=== PATIENT | female | born 1955 | race Caucasian/White ===

== ENCOUNTER 2016-05-30 11:40 | Observation (INO) | payer SELFPAY ==
--- NOTE | 2016-05-30 12:15 | ER Document Report ---
ED Medical Screen (RME) - General Chief Complaint: Chest Pain Stated Complaint: CHEST PAIN Notes: Patients primary language is guamanian and her cover sheet states she is complaining of a headache, chest pain, right shoulder pain, diarrhea. This symptoms all started yesterday morning TRAVEL OUTSIDE OF THE [place] IN LAST 30 DAYS: No - Related Data Allergies/Adverse Reactions: No Known Allergies Allergy (Verified 05/30/16 12:10) Past Medical History - Social History Chew tobacco use (# tins/day): No Frequency of alcohol use: None Drug Abuse: None Renal/ Medical History: Denies: Hx Peritoneal Dialysis Physical Exam - Vital signs Vitals: Temp Pulse Resp BP Pulse Ox 98.1 F 67 20 126/84 H 96 05/30/16 12:01 05/30/16 12:01 05/30/16 12:05/30/16 12:01 05/30/16 12:01 Course - Vital Signs Vital signs: Temp Pulse Resp BP Pulse Ox 98.1 F 67 20 126/84 H 96 05/30/16 12:01 05/30/16 12:01 05/30/16 12:01 05/30/16 12:01 05/30/16 12:01
[2016-05-30] MEDS ORDERED: ASPIRIN 81 MG TABLET, CHEWABLE PO ONE (12:42)
[2016-05-30] MEDS ORDERED: NORMAL SALINE 1000 ML 1,000 ML IV PRN (12:43)
[2016-05-30 13:25] LABS: ABSOLUTE MONOCYTES (AUTO) 0.5 10^3/uL (0.1-1.4); ABSOLUTE NEUT (AUTO) 3.4 10^3/uL (1.7-8.2); BASOPHILS % (AUTO) 0.1 % (0-2); HEMATOCRIT 41.3 % (36.0-47.0); HEMOGLOBIN 13.6 g/dL (12.0-15.5); HGB HCT DIFFERENCE -0.5; LYMPHOCYTES % (AUTO) 34.1 % (13-45); MEAN CORPUSCULAR HEMOGLOBIN 31.3 pg (27.0-33.4); MEAN CORPUSCULAR VOLUME 95 fl (80-97); RED BLOOD COUNT 4.35 10^6/uL (3.72-5.28); RED CELL DISTRIBUTION WIDTH 12.3 % (11.5-14.0); SEGMENTED NEUTROPHILS % (AUTO) 57.8 % (42-78); WHITE BLOOD COUNT 5.8 10^3/uL (4.0-10.5)
[2016-05-30 13:56] LABS: ALANINE AMINOTRANSFERASE 29 U/L (9-52); ALBUMIN 4.2 g/dL (3.5-5.0); ALKALINE PHOSPHATASE 100 U/L (38-126); ANION GAP 13 (5-19); ASPARTATE AMINO TRANSFERASE 28 U/L (14-36); BILIRUBIN,TOTAL 0.5 mg/dL (0.2-1.3); BLOOD UREA NITROGEN 18 mg/dL (7-20); CALCIUM 9.3 mg/dL (8.4-10.2); CARBON DIOXIDE 27 mmol/L (22-30); CHLORIDE 105 mmol/L (98-107); CREATINE KINASE 60 U/L (30-135); CREATININE RESULT 0.59 mg/dL (0.52-1.25); GLUCOSE 96 mg/dL (75-110); POTASSIUM 3.6 mmol/L (3.6-5.0); SODIUM 145.3 mmol/L (137-145); TOTAL PROTEIN 6.9 g/dL (6.3-8.2)
[2016-05-30 14:09] LABS: CREATINE KINASE MB < 0.22 ng/mL (<4.55); TROPONIN I < 0.012 ng/mL
[2016-05-30] MEDS ORDERED: INSULIN LISPRO 100 UNIT/ML 3 ML VIAL SUBCUT PRN (15:00)
[2016-05-30] MEDS ORDERED: DEXTROSE 40% GEL 15 GM TUBE PO PRN ×2 (15:00)
[2016-05-30] MEDS ORDERED: GLUCAGON,HUMAN RECOMB 1 MG INJ IM PRN (15:00)
[2016-05-30] MEDS ORDERED: DEXTROSE 50%-WATER 25 GM/50 ML DISP.SYRIN IV PRN ×2 (15:00)
--- NOTE | 2016-05-30 15:05 | ER Document Report ---
ED Cardiac - General Chief Complaint: Chest Pain Stated Complaint: CHEST PAIN Time seen by provider: 15:03 Mode of Arrival: Ambulatory Information source: Patient Notes: History is obtained via Vianca translation ([phone]) This is a 61-year-old Greek-speaking female with a history of hypertension and diabetes who presents to the emergency room with intermittent left sided chest pain radiating to the left arm and the left neck. Patient denies any exacerbating factors states it's better with aspirin. TRAVEL OUTSIDE OF THE [place] IN LAST 30 DAYS: No - HPI Patient complains to provider of: Chest pain, Chest tightness Use of: denies: Alcohol, Amphetamines, Bath salts, Caffeine, Cocaine, Decongestants, Other Was the onset of pain: Gradual Is the pain a: New problem Chest pain location: Substernal Quality of pain: Heaviness Chest pain radiation location: Left shoulder Severity now: None Severity at worst: Mild Pain level currently: 0 Cardiac risk factors: Diabetes, Hypertension Positive cardiac history: No Associated symptoms: denies: Abdominal pain, Jaw pain, Palpitations, Shortness of breath Exacerbated by: Denies Relieved by: Nothing Similar symptoms previously: No Recently seen / treated by doctor: No - Related Data Allergies/Adverse Reactions: No Known Allergies Allergy (Verified 05/30/16 12:10) Home Medications: Current Home Medications Amlodipine Besylate 10 mg PO DAILY 05/30/16 [History] Metformin HCl 500 mg PO BID 05/30/16 [History] Past Medical History - General Information source: Patient - Social History Smoking Status: Never Smoker Cigarette use (# per day): No Chew tobacco use (# tins/day): No Frequency of alcohol use: None Drug Abuse: None Lives with: Family Family History: Reviewed & Not Pertinent Patient has suicidal ideation: No Patient has homicidal ideation: No - Past Medical History Cardiac Medical History: Reports: Hx Hypertension Pulmonary Medical History: Reports: None EENT Medical History: Reports: None Neurological Medical History: Reports: None Endocrine Medical History: Reports: Hx Diabetes Mellitus Type 2 Renal/ Medical History: Denies: Hx Peritoneal Dialysis Malignancy Medical History: Reports: None GI Medical History: Reports: None Musculoskeltal Medical History: Reports None Skin Medical History: Reports None Psychiatric Medical History: Reports: None Traumatic Medical History: Reports: None Infectious Medical History: Reports: None Past Surgical History: Reports: Hx Hysterectomy, Hx Orthopedic Surgery - Immunizations Hx Diphtheria, Pertussis, Tetanus Vaccination: No Review of Systems - Review of Systems Constitutional: denies: Chills, Fever EENT: No symptoms reported Cardiovascular: See HPI Respiratory: No symptoms reported Gastrointestinal: No symptoms reported Genitourinary: No symptoms reported Female Genitourinary: No symptoms reported Musculoskeletal: No symptoms reported Skin: No symptoms reported Hematologic/Lymphatic: No symptoms reported Neurological/Psychological: No symptoms reported Physical Exam - Vital signs Vitals: Temp Pulse Resp BP Pulse Ox 98.1 F 67 20 126/84 H 96 05/30/16 12:01 05/30/16 12:01 05/30/16 12:01 05/30/16 12:01 05/30/16 12:01 Notes: Physical exam: GENERAL: 61-year-old female, alert and oriented 3, no acute distress. HEAD: Atraumatic, normocephalic. EYES: Pupils equal round and reactive to light, extraocular movements intact, sclera anicteric, conjunctiva are normal. ENT: oropharynx clear without exudates. Moist mucous membranes. NECK: Normal range of motion, supple without lymphadenopathy or JVD. LUNGS: Breath sounds clear to auscultation bilaterally and equal. No wheezes rales or rhonchi. HEART: Regular rate and rhythm without murmurs, rubs or gallops. ABDOMEN: Soft, nontender, normoactive bowel sounds. No guarding, no rebound. No masses appreciated. EXTREMITIES: Normal range of motion, no pitting or edema. No clubbing or cyanosis. NEUROLOGICAL: Cranial nerves II through XII grossly intact. Normal speech, moving all extremities. PSYCH: Normal mood, normal affect. SKIN: Warm, Dry, normal turgor, no rashes or lesions noted. Course - Vital Signs Vital signs: Temp Pulse Resp BP Pulse Ox 98.1 F 67 19 111/82 97 05/30/16 12:01 05/30/16 12:01 05/30/16 17:03 05/30/16 17:03 05/30/16 17:03 - Laboratory Result Diagrams: 05/30/16 13:20 05/30/16 13:20 Laboratory results interpreted by me: 05/30/16 13:20 Sodium 145.3 H - Diagnostic Test Radiology reviewed: Image reviewed, Reports reviewed - Chest x-ray is clear - EKG Interpretation by Me Rate: Normal Rhythm: NSR - EKG shows normal sinus rhythm with nonspecific T changes (no old EKG to compare). Discharge - Discharge Clinical Impression: chest pain Condition: Stable Disposition: ADMITTED OBSERVATION Admitting Provider: Hospitalist - Dr. Martinez on/[facility] Admitted: Telemetry
--- NOTE | 2016-05-30 15:55 | PDOC H&P ---
History of Present Illness Admission Date/PCP: 05/30/16 14:47 In [facility] Patient complains of: Chest pain History of Present Illness: CORNELIA AGEE is a 61-year-old Azeri-speaking female with a history of hypertension and diabetes who presents to the emergency room with intermittent left sided chest pain radiating to the left arm and the left neck. Patient denies any exacerbating factors states it's better with aspirin. The patient's examination and history were obtained using Gerhard translation. The patient denies any known history of coronary artery disease or previous myocardial infarction. However the patient stated that she saw a physician in [place] who told her her heart was weak. Symptom burnett the patient denies any nausea, vomiting, diarrhea, shortness of breath, dizziness, fever, chills. The patient's initial set of cardiac enzymes are found to be unremarkable. The patient's EKG revealed sinus rhythm. The given the patient's risk factors the patient was referred to the hospitalists for observation and management. MEDICATIONS: The medications listed in this document may have been auto- populated from previous contact and may not been verified or reconciled. This may not be an accurate reflection of the patient's home medication(s); however, authors are unable to edit or delete the medications listed in this document as "home medications". Selected Entries 05/30/16 15:01 Blood Pressure 124/71 05/30/16 13:20 Troponin I < 0.012 Past Medical History Cardiac Medical History: Reports: Hypertension Endocrine Medical History: Reports: Diabetes Mellitus Type 2 Past Surgical History Past Surgical History: Reports: Hysterectomy, Orthopedic Surgery Social History Information Source: Patient Occupation: Unemployed Lives with: Family Smoking Status: Never Smoker Frequency of Alcohol Use: None Hx Recreational Drug Use: No Drugs: None Hx Prescription Drug Abuse: No - Advance Directive Resuscitation Status: Full Code Surrogate healthcare decision maker:: Daughter [phone] Family History Family History: Reviewed & Not Pertinent Parental Family History Reviewed: Yes Children Family History Reviewed: Yes Sibling(s) Family History Reviewed.: Yes Medication/Allergy Home Medications: Amlodipine Besylate 10 mg PO DAILY 05/30/16 Metformin HCl 500 mg PO BID 05/30/16 Allergies/Adverse Reactions: No Known Allergies Allergy (Verified 05/30/16 12:10) Review of Systems Constitutional: ABSENT: chills, fever(s), headache(s), weight gain, weight loss Eyes: ABSENT: visual disturbances Ears: ABSENT: hearing changes Cardiovascular: PRESENT: chest pain. ABSENT: dyspnea on exertion, edema, orthropnea, palpitations Respiratory: ABSENT: cough, hemoptysis Gastrointestinal: ABSENT: abdominal pain, constipation, diarrhea, hematemesis, hematochezia, nausea, vomiting Genitourinary: ABSENT: dysuria, hematuria Musculoskeletal: ABSENT: joint swelling Integumentary: ABSENT: rash, wounds Neurological: ABSENT: abnormal gait, abnormal speech, confusion, dizziness, focal weakness, syncope Psychiatric: ABSENT: anxiety, depression, homidical ideation, suicidal ideation Endocrine: ABSENT: cold intolerance, heat intolerance, polydipsia, polyuria Hematologic/Lymphatic: ABSENT: easy bleeding, easy bruising Physical Exam Vital Signs: Temp Pulse Resp BP Pulse Ox 98.1 F 67 21 H 124/71 96 05/30/16 12:01 05/30/16 12:01 05/30/16 15:01 05/30/16 15:01 05/30/16 15:00 General appearance: PRESENT: no acute distress, cooperative, well-developed, well-nourished Head exam: PRESENT: atraumatic, normocephalic Eye exam: PRESENT: conjunctiva pink, EOMI, PERRLA. ABSENT: scleral icterus Ear exam: PRESENT: normal external ear exam Mouth exam: PRESENT: moist, tongue midline Neck exam: ABSENT: carotid bruit, JVD, lymphadenopathy, thyromegaly Respiratory exam: PRESENT: clear to auscultation stefan, symmetrical, unlabored. ABSENT: rales, rhonchi, tachypnea, wheezes Cardiovascular exam: PRESENT: RRR. ABSENT: diastolic murmur, rubs, systolic murmur Pulses: PRESENT: normal dorsalis pedis pul Vascular exam: PRESENT: normal capillary refill GI/Abdominal exam: PRESENT: normal bowel sounds, soft. ABSENT: distended, guarding, mass, organolmegaly, rebound, tenderness Rectal exam: PRESENT: deferred Extremities exam: PRESENT: full ROM. ABSENT: calf tenderness, clubbing, pedal edema Neurological exam: PRESENT: alert, awake, oriented to person, oriented to place , oriented to time, oriented to situation, CN II-XII grossly intact. ABSENT: motor sensory deficit Psychiatric exam: PRESENT: appropriate affect, normal mood. ABSENT: homicidal ideation, suicidal ideation Skin exam: PRESENT: dry, intact, warm. ABSENT: cyanosis, rash Results Laboratory Results: Labs- Last Values WBC 5.8 10^3/uL (4.0-10.5) 05/30/16 13:20 RBC 4.35 10^6/uL (3.72-5.28) 05/30/16 13:20 Hgb 13.6 g/dL (12.0-15.5) 05/30/16 13:20 Hct 41.3 % (36.0-47.0) 05/30/16 13:20 MCV 95 fl (80-97) 05/30/16 13:20 MCH 31.3 pg (27.0-33.4) 05/30/16 13:20 MCHC 33.0 g/dL (32.0-36.0) 05/30/16 13:20 RDW 12.3 % (11.5-14.0) 05/30/16 13:20 Plt Count 176 10^3/uL (150-450) 05/30/16 13:20 Seg Neutrophils % 57.8 % (42-78) 05/30/16 13:20 Lymphocytes % 34.1 % (13-45) 05/30/16 13:20 Monocytes % 8.0 % (3-13) 05/30/16 13:20 Eosinophils % 0.0 % (0-6) 05/30/16 13:20 Basophils % 0.1 % (0-2) 05/30/16 13:20 Absolute Neutrophils 3.4 10^3/uL (1.7-8.2) 05/30/16 13:20 Absolute Lymphocytes 2.0 10^3/uL (0.5-4.7) 05/30/16 13:20 Absolute Monocytes 0.5 10^3/uL (0.1-1.4) 05/30/16 13:20 Absolute Eosinophils 0.0 10^3/uL (0.0-0.6) 05/30/16 13:20 Absolute Basophils 0.0 10^3/uL (0.0-0.2) 05/30/16 13:20 Sodium 145.3 mmol/L (137-145) H 05/30/16 13:20 Potassium 3.6 mmol/L (3.6-5.0) 05/30/16 13:20 Chloride 105 mmol/L (98-107) 05/30/16 13:20 Carbon Dioxide 27 mmol/L (22-30) 05/30/16 13:20 Anion Gap 13 (5-19) 05/30/16 13:20 BUN 18 mg/dL (7-20) 05/30/16 13:20 Creatinine 0.59 mg/dL (0.52-1.25) 05/30/16 13:20 Est GFR ( Amer) > 60 (>60) 05/30/16 13:20 Est GFR (Non-Af Amer) > 60 (>60) 05/30/16 13:20 Glucose 96 mg/dL (75-110) 05/30/16 13:20 Calcium 9.3 mg/dL (8.4-10.2) 05/30/16 13:20 Total Bilirubin 0.5 mg/dL (0.2-1.3) 05/30/16 13:20 Direct Bilirubin 0.0 mg/dL (0.0-0.3) 05/30/16 13:20 AST 28 U/L (14-36) 05/30/16 13:20 ALT 29 U/L (9-52) 05/30/16 13:20 Alkaline Phosphatase 100 U/L (38-126) 05/30/16 13:20 Creatine Kinase 60 U/L (30-135) 05/30/16 13:20 CK-MB (CK-2) < 0.22 ng/mL (<4.55) 05/30/16 13:20 Troponin I < 0.012 ng/mL 05/30/16 13:20 Total Protein 6.9 g/dL (6.3-8.2) 05/30/16 13:20 Albumin 4.2 g/dL (3.5-5.0) 05/30/16 13:20 Impressions: Chest X-Ray 05/30/16 12:43 IMPRESSION: NO ACUTE RADIOGRAPHIC FINDING IN THE CHEST. Assessment & Plan - Diagnosis (1) Chest pain Qualifiers: Chest pain type: other chest pain Qualified Code(s): R07.89 - Other chest pain; R07.8 - Other chest pain Is this a current diagnosis for this admission?: YesPlan: Will observe the patient continues telemetry unit, obtain serial cardiac enzymes , repeat EKG, and obtain lipid panel in the a.m. Given the patient's risk factors will schedule for Cardiolite stress test. (2) Diabetes mellitus type 2, uncomplicated Qualifiers: Diabetes mellitus property site manager insulin use: without property site manager use Qualified Code(s): E11.9 - Type 2 diabetes mellitus without complications Is this a current diagnosis for this admission?: YesPlan: Will hold the patient's metformin in the event the patient requires cardiac catheterization and cover with sliding scale coverage for now. (3) Hypertension Qualifiers: Hypertension type: essential hypertension Qualified Code(s): I10 - Essential (primary) hypertension Is this a current diagnosis for this admission?: YesPlan: Will continue home medications. (4) DVT prophylaxis Is this a current diagnosis for this admission?: YesPlan: Will start subcutaneous heparin - Time Time Spent with patient: Time spent on this admission including assessment, plan, physical examination, product marketing engineer service, and patient education is 50 minutes. Time Spent: 50 to 70 Minutes Medications reviewed and adjusted accordingly: Yes Anticipated discharge: Home Within: within 24 hours Disposition: The patient is a full code. Pending patient's symptomatology and diagnostic findings will reevaluate in the a.m.
--- NOTE | 2016-05-30 18:02 | EKG REPORT ---
SEVERITY:- ABNORMAL ECG - SINUS RHYTHM BORDERLINE LEFT AXIS DEVIATION NONSPECIFIC T ABNORMALITIES, ANTERIOR LEADS : Confirmed by: Alex Villasenor MD 30-May-2016 18:01:19
[2016-05-30] MEDS: LANSOPRAZOLE 30 MG TAB.RAP.DR PO SCH (22:11)
[2016-05-30] MEDS: HEPARIN SOD (PORCINE) 5,000 UNIT/ML 1 ML SYRINGE SUBCUT SCH (22:12)
[2016-05-31] MEDS: HEPARIN SOD (PORCINE) 5,000 UNIT/ML 1 ML SYRINGE SUBCUT SCH ×3 (05:36→21:29)
[2016-05-31] MEDS: LANSOPRAZOLE 30 MG TAB.RAP.DR PO SCH ×2 (05:37→17:47)
[2016-05-31 07:09] LABS: CHOLESTEROL 140.65 mg/dL (0-200); Direct HDL 36 mg/dL (>40); TRIGLYCERIDES 237 mg/dL (<150)
[2016-05-31 07:20] LABS: DIRECT LDL 77 mg/dL (<100)
[2016-05-31 07:29] LABS: VLDL CHOLESTEROL 47.4 mg/dL (10-31)
--- NOTE | 2016-05-31 08:00 | EKG REPORT ---
SEVERITY:- ABNORMAL ECG - SINUS RHYTHM PROBABLE INFERIOR INFARCT, AGE INDETERMINATE : Confirmed by: Alex Villasenor MD 31-May-2016 07:59:41
[2016-05-31] MEDS: AMLODIPINE BESYLATE 10 MG TABLET PO SCH (09:26)
--- NOTE | 2016-05-31 15:06 | PDOC PROGRESS REPORT ---
Subjective Progress Note for:: 05/31/16 Subjective:: Patient seen on morning rounds. She is resting presently in bed. She does not speak any Liberian. Use of Brozengo translation system to do review of systems with patient. She denies any chest pain, shortness of breath or dyspnea. She denies any nausea, vomiting, diarrhea or abdominal pain. She denies any back pain or myalgias. She unfortunately did not understand nursing's instruction and ate her breakfast prior to stress testing. Stress test unfortunately will be postponed until tomorrow. Physical Exam Vital Signs: Temp Pulse Resp BP Pulse Ox 97.9 F 68 20 123/62 97 05/31/16 11:39 05/31/16 14:00 05/31/16 11:39 05/31/16 11:39 05/31/16 11:39 Intake & Output 05/30/16 05/31/16 06/01/16 06:59 06:59 06:59 Intake Total 0 450 Output Total 0 Balance 0 450 Weight 81.1 kg General appearance: PRESENT: no acute distress, well-developed, well-nourished Head exam: PRESENT: atraumatic Eye exam: PRESENT: conjunctiva pink, EOMI, PERRLA. ABSENT: scleral icterus Ear exam: PRESENT: normal external ear exam Mouth exam: PRESENT: moist, tongue midline Neck exam: ABSENT: carotid bruit, JVD, lymphadenopathy, thyromegaly Respiratory exam: PRESENT: clear to auscultation stefan. ABSENT: rales, rhonchi, wheezes Cardiovascular exam: PRESENT: RRR. ABSENT: diastolic murmur, rubs, systolic murmur Pulses: PRESENT: normal dorsalis pedis pul Vascular exam: PRESENT: normal capillary refill GI/Abdominal exam: PRESENT: normal bowel sounds, soft. ABSENT: distended, guarding, mass, organolmegaly, rebound, tenderness Rectal exam: PRESENT: deferred Extremities exam: PRESENT: full ROM. ABSENT: calf tenderness, clubbing, pedal edema Neurological exam: PRESENT: alert, awake, oriented to person, oriented to place , oriented to time, oriented to situation, CN II-XII grossly intact. ABSENT: motor sensory deficit Psychiatric exam: PRESENT: appropriate affect, normal mood. ABSENT: homicidal ideation, suicidal ideation Skin exam: PRESENT: dry, intact, warm. ABSENT: cyanosis, rash Results Laboratory Results: 05/31/16 05:59 Triglycerides 237 H Cholesterol 140.65 LDL Cholesterol Direct 77 VLDL Cholesterol 47.4 H HDL Cholesterol 36 L 05/30/16 05/31/16 20:05 02:07 Troponin I < 0.012 < 0.012 Impressions: Chest X-Ray 05/30/16 12:43 IMPRESSION: NO ACUTE RADIOGRAPHIC FINDING IN THE CHEST. Assessment & Plan - Diagnosis (1) Chest pain Qualifiers: Chest pain type: other chest pain Qualified Code(s): R07.89 - Other chest pain; R07.8 - Other chest pain Is this a current diagnosis for this admission?: YesPlan: Patient ruled out for acute coronary syndrome. Pain most likely esophageal in origin will obtain cardiolyte stress test tomorrow am. (2) Diabetes mellitus type 2, uncomplicated Qualifiers: Diabetes mellitus alf insulin use: without intermediate manager use Qualified Code(s): E11.9 - Type 2 diabetes mellitus without complications Is this a current diagnosis for this admission?: YesPlan: continue current medications with sliding scale coverage (3) Hypertension Qualifiers: Hypertension type: essential hypertension Qualified Code(s): I10 - Essential (primary) hypertension Is this a current diagnosis for this admission?: YesPlan: Patient is normotensive on current medications (4) DVT prophylaxis Is this a current diagnosis for this admission?: YesPlan: Patient on heparin subcutaneous - Time Time Spent with patient: 25-34 minutes Critical Time spent with patient: 15-24 minutes Medications reviewed and adjusted accordingly: Yes Anticipated discharge: Home
[2016-06-01] MEDS ORDERED: KETOROLAC TROMETHAMINE INJ/PF 30 MG/1 ML SDV IV PRN (01:56)
[2016-06-01] MEDS: LANSOPRAZOLE 30 MG TAB.RAP.DR PO SCH (06:32)
[2016-06-01] MEDS: HEPARIN SOD (PORCINE) 5,000 UNIT/ML 1 ML SYRINGE SUBCUT SCH (06:35)
[2016-06-01] MEDS ORDERED: ISONIAZID 300 MG TABLET PO ONE (11:00)
[2016-06-01] MEDS ORDERED: REGADENOSON INJ 0.4 MG/5 ML DISP.SYRIN IV ONE (12:01)
[2016-06-01] MEDS: AMLODIPINE BESYLATE 10 MG TABLET PO SCH (12:13)
[2016-06-01 15:35] VITALS: BP 158/68
--- NOTE | 2016-06-01 16:34 | PDOC DISCHARGE SUMMARY ---
General - Admit/Disc Date/PCP Admission Date/Primary Care Provider: 05/30/16 14:47 Discharge Date: 06/01/16 - Discharge Diagnosis (1) Chest pain Is this a current diagnosis for this admission?: YesSummary: Cardiolite stress test negative for ischemia. 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 Chest xray is normal and she has no cough or symptoms - Additional Information Resuscitation Status: Full Code Discharge Diet: Regular Discharge Activity: Activity As Tolerated Home Medications: Amlodipine Besylate 10 mg PO DAILY 05/30/16 Metformin HCl 500 mg PO BID 05/30/16 Isoniazid [Isoniazid 300 mg Tablet] 300 mg PO DAILY #30 tablet 06/01/16 Lansoprazole [Prevacid 30 mg Odt Tablet] 30 mg PO DAILY #30 tab. 06/01/16 History of Present Illness Patient complains of: Chest pain intermittently History of Present Illness: CORNELIA AGEE is a 61 year old female who is visiting daughter from [place], presents to [place] [facility] ED on 05/30/2016 with intermittent episodes of left sided chest pain radiating midsternally over the last day. She has history of diabetes mellitus and hypertension, no known history of coronary artery disease. Her EKG and first troponin ER were unremarkable. She she was referred to the hospitalist service for admission Hospital Course Hospital Course: Patient was admitted to telemetry, serial troponins were obtained. All troponins were unremarkable for cardiac ischemia. She had no further chest pain. She was scheduled for a Cardiolite stress test the following morning on the . Nursing gave her instructions using Histros system, unfortunately 1 after being instructed to not eat until after her tests test was initiated, her tray was brought into her room and she ate her breakfast. Stress test had to be postponed until the following day. The patient's daughter called the nursing staff overnight informing them that the patient's primary care provider in [place] had called with results of the positive cold interferon TB test.. Patient was transferred into a respiratory isolation room. Patient has no cough or any symptoms of TB. Her chest x-ray is unremarkable. She states her doctor did the test after she returned from 2 weeks in [place] at [facility]. We placed her on initial dose of INH. She'll continue to take this daily for the next 9 months. She underwent Cardiolite stress testing today which was unremarkable any coronary ischemia Physical Exam Vital Signs: Temp Pulse Resp BP Pulse Ox 97.6 F 75 16 158/68 H 96 06/01/16 15:32 06/01/16 15:32 06/01/16 15:32 06/01/16 15:32 06/01/16 15:32 Intake & Output 05/31/16 06/01/16 06/02/16 06:59 06:59 06:59 Intake Total 0 1705 750 Output Total 0 2 Balance 0 1703 750 Weight 81.1 kg 76.2 kg General appearance: PRESENT: no acute distress, well-developed, well-nourished Head exam: PRESENT: atraumatic, normocephalic Eye exam: PRESENT: conjunctiva pink, EOMI, PERRLA. ABSENT: scleral icterus Ear exam: PRESENT: normal external ear exam Mouth exam: PRESENT: moist, tongue midline Neck exam: ABSENT: carotid bruit, JVD, lymphadenopathy, thyromegaly Respiratory exam: PRESENT: clear to auscultation stefan. ABSENT: rales, rhonchi, wheezes Cardiovascular exam: PRESENT: RRR. ABSENT: diastolic murmur, rubs, systolic murmur Pulses: PRESENT: normal dorsalis pedis pul Vascular exam: PRESENT: normal capillary refill GI/Abdominal exam: PRESENT: normal bowel sounds, soft. ABSENT: distended, guarding, mass, organolmegaly, rebound, tenderness Rectal exam: PRESENT: deferred Extremities exam: PRESENT: full ROM. ABSENT: calf tenderness, clubbing, pedal edema Neurological exam: PRESENT: alert, awake, oriented to person, oriented to place , oriented to time, oriented to situation, CN II-XII grossly intact. ABSENT: motor sensory deficit Psychiatric exam: PRESENT: appropriate affect, normal mood. ABSENT: homicidal ideation, suicidal ideation Skin exam: PRESENT: dry, intact, warm. ABSENT: cyanosis, rash Results Laboratory Results: 05/30/16 05/31/16 20:05 02:07 Troponin I < 0.012 < 0.012 Impressions: Chest X-Ray 05/30/16 12:43 IMPRESSION: NO ACUTE RADIOGRAPHIC FINDING IN THE CHEST. Qualifiers PATEINT BEING DISCHARGED WITH ANY OF THE FOLLOWING DIAGNOSIS?: No Plan Discharge Plan: Discharge home with family Time Spent: Less than 30 Minutes
--- NOTE | 2016-06-01 20:48 | DRAGON STRESS TEST REPORT ---
Intravenous Lexiscan Cardiolite stress test using single photon emmision computerized tomography. Date of procedure: 06/01/2016 Ordering Provider: Miss Sammy Elizabeth NP. Indication: Chest pain. Coronary risk factors: Age, diabetes mellitus, and hypertension. Resting EKG: Sinus Rhythm. Diffuse nonspecific ST-T changes Stress EKG: No changes of ischemia. The patient had no chest pain or discomfort, and there were no arrhythmias seen. The patient had transient dizziness with a normal blood pressure and some shortness of breath was which were relieved with the patient drinking Pepsi. Note since the patient does not speak [place] there was a video digital marketing apprentice giving instructions the patient after receiving it from all the staff involved in performing the stress test. Reason for termination: Protocol. Conclusions: Normal EKG and hemodynamic response to IV Lexiscan. Nuclear data: At rest the patient was given 12.59 millicuries of technetium 99m sestamibi injected intravenously. As per protocol rest non gated SPECT images were obtained. Subsequently the patient was given intravenous Lexiscan at a dose of 0.4 mg in 5 mL intravenously, followed by flush with normal saline. Subsequently the stress dose of 36.2 millicuries of technetium 99m sestamibi was injected intravenously. As per protocol stress gated images were obtained. Nuclear interpretation: Review of images showed that all segments of the myocardium had normal perfusion at rest, and normal perfusion post stress with IV Lexiscan. All segments of the myocardium had normal motion, contraction, and thickening by gated study. T. I D. ratio was read by the computer as abnormal at 1.28. This is unreliable , and visually the apical T I D ratio was normal .Computer read rest, and stress left ventricular ejection fraction were 67 %, and 63 %, respectively. Conclusion: 1. There is no scintigraphic evidence of Lexiscan induced myocardial ischemia. 2. There is no scintigraphic evidence of myocardial infarction/scar. Recommendations: Aggressive risk factor modification, and treating the underlying co- morbidities. MTDD
[2016-06-02] MEDS ORDERED: ISONIAZID 300 MG TABLET PO SCH (10:00)
== END 2016-06-01 16:29 | disposition home or self-care (01) ==
LOC: ER 11:40 → EH 14:47 → 5 18:42 → 3S 06-01 00:10
DX: R07.9 Chest pain, unspecified (principal); E11.9 Type 2 diabetes mellitus without complications; I10 Essential (primary) hypertension; Z79.01 Long term (current) use of anticoagulants; R76.11 Nonspecific reaction to tuberculin skin test without active tuberculosis; Z79.84 Long term (current) use of oral hypoglycemic drugs
CPT/HCPCS: 93005 ×2; 99285; 36415 ×2; 82553; 82962 ×3; 82550; 85025; 80053; 84484 ×2; 80061; 93017; 71010; 78452; 93010 ×2; G0378 ×4; A9500; J2785; J1644 ×3; J3490 ×4; J1885; J7030; Q9969